=== PATIENT | male | born 1990 | race African-American/Black ===

== ENCOUNTER 2021-10-11 09:18 | Emergency (ER) | payer SELFPAY ==
[~2021-10-11] VITALS: Ht 193 cm; Wt 92.0 kg
[2021-10-11] MEDS ORDERED: IBUPROFEN 400MG TABLET PO ONE (11:45)
[2021-10-11] MEDS ORDERED: ACETAMINOPHEN 325MG TABLET PO ONE (11:45)
[2021-10-11 11:53] VITALS: BP 121/74
== END 2021-10-11 14:07 | disposition home or self-care (01) ==
LOC: ER 09:18
DX: S52.124A Nondisplaced fracture of head of right radius, initial encounter for closed fracture (principal); J45.909 Unspecified asthma, uncomplicated; V00.131A Fall from skateboard, initial encounter; Y93.51 Activity, roller skating (inline) and skateboarding; Y92.89 Other specified places as the place of occurrence of the external cause
CPT/HCPCS: 29105; 73080; 73090; 99284

== ENCOUNTER 2021-11-27 20:08 | Emergency (ER) | payer SELFPAY ==
[~2021-11-27] VITALS: Ht 193 cm; Wt 94.3 kg
[2021-11-27] MEDS ORDERED: MAGNESIUM/ALUMINUM HYDROXIDE/SIMETHICONE 30ML UDC PO STA (20:47)
[2021-11-27] MEDS ORDERED: KETOROLAC 30MG/ML VIAL IV STA (20:47)
[2021-11-27] MEDS ORDERED: PANTOPRAZOLE SODIUM 40 MG/VIAL IV STA (20:47)
[2021-11-27] MEDS ORDERED: SODIUM CHLORIDE 0.9% 1,000 ML IV ONE (21:00)
[2021-11-27 21:09] VITALS: BP 122/70
[2021-11-27 21:22] LABS: CLARITY URINE CLEAR (CLEAR); COLOR URINE DARK YELLOW (YELLOW); KETONES URINE 1+ (NEGATIVE); LEUKOCYTE ESTERASE URINE NEGATIVE (NEGATIVE); NITRITE URINE NEGATIVE (NEGATIVE); OCCULT BLOOD URINE NEGATIVE (NEGATIVE); PROTEIN URINE 1+ (NEGATIVE); SPECIFIC GRAVITY URINE 1.032 (1.005-1.030)
[2021-11-27 21:27] LABS: HEMATOCRIT. 49.7 % (42.0-52.0); HEMOGLOBIN. 16.9 g/dL (14.0-18.0); MEAN CORPUSCULAR VOLUME 91.4 fL (80.0-94.0); MEAN PLATELET VOLUME 8.6 fl (7.4-10.4); PLATELET 198 x1000/uL (130-400); RED BLOOD CELL COUNT 5.43 mill/uL (4.7-6.1); RED CELL DISTRIBUTION WIDTH 12.4 % (11.6-14.6)
[2021-11-27 21:35] LABS: *AMPHETAMINES SCREEN URINE NEGATIVE (NEGATIVE); *BARBITURATES SCREEN URINE NEGATIVE (NEGATIVE); *BENZODIAZEPINES SCREEN URINE NEGATIVE (NEGATIVE); *COCAINE SCREEN URINE NEGATIVE (NEGATIVE); CANNABINOID URINE SCREEN PRESUMTIVE POSITIVE (NEGATIVE); METHADONE URINE SCREEN NEGATIVE (NEGATIVE); OPIATES URINE SCREEN NEGATIVE (NEGATIVE); PHENCYCLIDINE URINE SCREEN NEGATIVE (NEGATIVE)
[2021-11-27 21:36] LABS: CHLORIDE 106 mEq/L (98-107)
[2021-11-27 21:43] LABS: ETHANOL BLOOD < 10 mg/dL
[2021-11-27 22:09] LABS: PLATELET ESTIMATE NORMAL
[2021-11-27] MEDS ORDERED: MAG-55 MT (22:32)
[2021-11-27] MEDS ORDERED: ACET-2708 MT (22:32)
[2021-11-27] MEDS ORDERED: METO-293 MT (22:32)
== END 2021-11-27 23:19 | disposition home or self-care (01) ==
LOC: ER 20:08
DX: R10.9 Unspecified abdominal pain (principal); R11.2 Nausea with vomiting, unspecified; D72.819 Decreased white blood cell count, unspecified; J45.909 Unspecified asthma, uncomplicated; Z13.9 Encounter for screening, unspecified
CPT/HCPCS: 36415; 74176; 80053; 80305; 80320; 81003; 83605; 83690; 85025; 96374; 96375; 99284; C9113; J1885; J7030; G0480